=== PATIENT | female | born 1935 | race Caucasian/White ===

== ENCOUNTER 2022-07-12 08:24 | Emergency (ER) | payer MEDICARE, OTHER ==
[~2022-07-12] VITALS: Ht 162.6 cm; Wt 61.8 kg
[2022-07-12 11:31] LABS: COLLECTION METHOD CLEAN CATCH
[2022-07-12 11:40] LABS: SQUAMOUS EPITHELIAL 0-2 /hpf (0-10); URINE BACTERIA Rare /hpf (NONE SEEN); URINE RBC 0-2 /hpf (0-2)
[2022-07-12 11:45] LABS: URINE APPEARANCE Clear (CLEAR/HAZY); URINE BLOOD TRACE-INTACT (NEGATIVE); URINE COLOR Yellow (YELLOW); URINE GLUCOSE Negative (NEGATIVE); URINE KETONE Negative (NEGATIVE); URINE NITRATE Negative (NEGATIVE); URINE PROTEIN(semi-quant) Negative (NEGATIVE); URINE UROBILINOGEN 0.2 E.U/dL (0.2-1.0)
[2022-07-12] MEDS ORDERED: NORCO 325 MG-51 TAB PO (14:43)
[2022-07-12 15:13] VITALS: BP 184/104; PULSE 69; TEMP 97.9
== END 2022-07-12 15:18 | disposition home or self-care (01) ==
LOC: COL.ER 08:24
PROVIDERS: Emergency Medicine
DX: M48.061 Spinal stenosis, lumbar region without neurogenic claudication (principal); W07.XXXA Fall from chair, initial encounter